=== PATIENT | female | born 1975 | race Caucasian/White ===

== ENCOUNTER → 2021-03-23 | Emergency (ER) | payer OTHER ==
[~2021-03-23] VITALS: Ht 154.9 cm; Wt 81.6 kg
[~2021-03-23] MED LIST: ATIVAN1 M1
== END | disposition left against medical advice (07) ==
LOC: ER 03:55
DX: Z53.21 Procedure and treatment not carried out due to patient leaving prior to being seen by health care provider (principal)

== ENCOUNTER 2021-11-20 15:49 | Emergency (ER) | payer OTHER ==
[~2021-11-20] VITALS: Ht 154.9 cm; Wt 79.4 kg
== END 2021-11-20 19:07 | disposition home or self-care (01) ==
LOC: ER 15:49
DX: J22 Unspecified acute lower respiratory infection (principal); Z20.822 Contact with and (suspected) exposure to COVID-19

== ENCOUNTER 2021-11-22 08:35 | Inpatient (IN) | payer OTHER ==
[~2021-11-22] VITALS: Ht 154.9 cm; Wt 81.6 kg
[2021-11-22] MEDS ORDERED: LEVOFLOXACIN500 MG PO (08:50)
[2021-11-29] MEDS ORDERED: FAMOTIDINE20 MG PO (13:11)
[2021-11-29] MEDS ORDERED: VITAMIN B-121000 MCG PO (13:11)
[2021-11-29] MEDS ORDERED: FOLIC ACID1 MG PO (13:11)
[2021-11-29] MEDS ORDERED: MUCINEX600 MG PO (13:11)
[2021-11-29] MEDS ORDERED: PROTONIX40 MG PO (13:11)
== END 2021-11-29 13:25 | disposition home or self-care (01) | DRG 812 ==
LOC: ER 08:35 → MEDI 19:17
PROVIDERS: ADMIT Internal Medicine; ATTEND Internal Medicine
PROC: BW21ZZZ Computerized Tomography (CT Scan) of Abdomen and Pelvis (ICD-10-PCS; 2021-11-22)
PROC: 30233N1 Transfusion of Nonautologous Red Blood Cells into Peripheral Vein, Percutaneous Approach (ICD-10-PCS; principal; 2021-11-23)
PROC: BW28ZZZ Computerized Tomography (CT Scan) of Head (ICD-10-PCS; 2021-11-23)
PROC: 0DB48ZX Excision of Esophagogastric Junction, Via Natural or Artificial Opening Endoscopic, Diagnostic (ICD-10-PCS; 2021-11-28)
PROC: 0DB98ZX Excision of Duodenum, Via Natural or Artificial Opening Endoscopic, Diagnostic (ICD-10-PCS; 2021-11-28)
PROC: 0DB78ZX Excision of Stomach, Pylorus, Via Natural or Artificial Opening Endoscopic, Diagnostic (ICD-10-PCS; 2021-11-28)
PROC: 0DB68ZX Excision of Stomach, Via Natural or Artificial Opening Endoscopic, Diagnostic (ICD-10-PCS; 2021-11-28)
PROC: 0DJD8ZZ Inspection of Lower Intestinal Tract, Via Natural or Artificial Opening Endoscopic (ICD-10-PCS; 2021-11-28)
DX: D50.0 Iron deficiency anemia secondary to blood loss (chronic) (principal); K92.1 Melena; E86.0 Dehydration; K52.89 Other specified noninfective gastroenteritis and colitis; K59.09 Other constipation; K21.9 Gastro-esophageal reflux disease without esophagitis; R16.1 Splenomegaly, not elsewhere classified; K29.30 Chronic superficial gastritis without bleeding; Z20.822 Contact with and (suspected) exposure to COVID-19